=== PATIENT | male | born 1950 | race Caucasian/White ===

== ENCOUNTER → 2017-07-25 20:12 | Outpatient (CLI) | payer OTHER, MEDICARE, SELFPAY | PROVIDERS: PCP Specialist; Visit Provider Nurse Practitioner Family | DX: G47.33 Obstructive sleep apnea (adult) (pediatric) (principal); R06.83 Snoring; R51 Headache; G47.50 Parasomnia, unspecified; G47.30 Sleep apnea, unspecified | CPT/HCPCS: 95810 ==

== ENCOUNTER → 2017-07-26 08:50 | Outpatient (CLI) | payer MEDICARE, OTHER, SELFPAY ==
--- NOTE | 2017-07-26 08:56 | FL_ITS ---
FL upper GI w air HISTORY: ITS.REASON: NAUSEA,ABD PAIN ORDERING PHYSICIAN: Reginaldo Godinez MD PATIENT AGE: 66 years COMPARISON: None FINDINGS: There is dysmotility of the esophagus with prominent tertiary contractions. There is a small sliding hiatal hernia. There was some spasm of the distal esophagus at the GE junction. Stomach and duodenum have an unremarkable appearance. No ulcer or mass is evident. Proximal small bowel is unremarkable. Fluoroscopy time: 1 minute and 52 seconds. IMPRESSION: 1. Esophageal dysmotility with tertiary contractions and spasm of the distal esophagus with a small sliding hiatal hernia. 2. Otherwise negative upper GI
== END ==
PROVIDERS: Family Provider Nurse Practitioner; PCP Specialist; Visit Provider Family Medicine
DX: R11.0 Nausea (principal); R10.9 Unspecified abdominal pain
CPT/HCPCS: 74247

== ENCOUNTER → 2019-02-23 11:05 | Outpatient (CLI) | payer MEDICARE, OTHER, SELFPAY ==
--- NOTE | 2019-02-23 11:19 | XR_ITS ---
PROCEDURE: XR FOOT WT BEARING LT 3V CLINICAL INDICATION: achilles tendonitis COMPARISON: FTR3 FOOT-RT-3 VIEWS from 11/02/2013 FINDINGS: No fracture or dislocation. No lytic or blastic change. There is normal mineralization. The joint spaces are well-preserved. No significant degenerative/arthritic changes. No erosive changes evident. Other findings:There is a 5 millimeter plantar calcaneal spur and a prominent area of exostosis at the posterior calcaneus at the Achilles tendon attachment site. IMPRESSION: No acute process. Degenerative posterior and plantar calcaneal spurs. Posterior calcifications also to suggest Achilles calcific tendinitis. Dictated by: Rj Dave 02/23/2019 12:10 Electronically signed by Rj Dave in [place] 02/23/2019 12:10
--- NOTE | 2019-02-23 11:19 | XR_ITS ---
PROCEDURE: XR ANKLE WT BEARING LT MIN 3V CLINICAL INDICATION: achilles tendonitis COMPARISON: No exams were available for comparison FINDINGS: Bone density, joint spaces and alignment are normal. There is no acute fracture. There are prominent plantar and posterior calcaneal spurs and calcification likely related to the Achilles tendon near the attachment to the calcaneus. There are rounded calcific density some of which have central lucencies suggesting phleboliths within the anterior subcutaneous soft tissues. IMPRESSION: No acute process. Degenerative changes involving calcaneus with changes of Achilles calcific tendinitis. Dictated by: Rj Dave 02/23/2019 12:12 Electronically signed by Rj Dave in [place] 02/23/2019 12:12
--- NOTE | 2019-02-23 11:19 | XR_ITS ---
PROCEDURE: XR FOOT WT BEARING RT 3V CLINICAL INDICATION: achilles tendonitis COMPARISON: FTR3 FOOT-RT-3 VIEWS from 11/02/2013 XR FOOT WT BEARING LT 3V from 02/23/2019 FINDINGS: No fracture or dislocation. No lytic or blastic change. There is normal mineralization. The joint spaces are well-preserved. No significant degenerative/arthritic changes. No erosive changes evident. Other findings:There is a 5 millimeter calcaneal plantar spur and posterior calcaneal spur at the Achilles tendon attachment site. IMPRESSION: No acute process. Calcaneal spurs. Dictated by: Rj Dave 02/23/2019 12:08 Electronically signed by Rj Dave in [place] 02/23/2019 12:08
== END ==
PROVIDERS: PCP Family Medicine; Visit Provider Podiatrist
DX: M79.672 Pain in left foot; M79.671 Pain in right foot; M25.572 Pain in left ankle and joints of left foot
CPT/HCPCS: 73610; 73630

== ENCOUNTER → 2019-04-28 09:40 | Outpatient (POV) | payer MEDICARE, OTHER, SELFPAY | PROVIDERS: Visit Provider Dermatology | DX: Z00.00 Encounter for general adult medical examination without abnormal findings (principal) ==

== ENCOUNTER 2020-05-19 10:52 | Emergency (ER) | payer MEDICARE, OTHER, SELFPAY ==
[2020-05-19 11:00] VITALS: BP 138/91; PULSE 76; RESP 18; TEMP 36.9; O2SAT 97; BMI 41.8
--- NOTE | 2020-05-19 11:28 | HMH.EDUTC ---
[facility] Disposition Clinical Impression: Exposure to COVID-19 virus Disposition: Home, Self-Care Condition on Discharge: Good Instructions: Preventing the Spread of Coronavirus Discharge Instructions Additional Instructions: Drink plenty of fluids. Take tylenol for pain or fever. Return if you begin to have difficulty breathing. Follow up with your regular doctor. GO TO THE ER FOR ANY WORSENING SYMPTOMS Referrals: Chris Paniagua MD [Primary Care Provider] - Time of Disposition: 11:30 Medical Decision Making - Medical Records Medical records reviewed: No: I reviewed the patient's medical records. - Brian Inquiry Pt receiving controlled substance: No Vital Signs: 05/19/20 11:00 05/19/20 11:38 Temperature 98.4 F 98.4 F Temperature Source Oral Pulse Rate 76 Pulse Rate [Left Brachial] 76 Respiratory Rate 18 18 Blood Pressure 138/91 H Blood Pressure [Left Arm] 138/91 H Blood Pressure Mean [Left Arm] 106 Blood Pressure Source [Left Arm] Automatic Cuff Blood Pressure Position [Left Arm] Sitting 02 Sat by Pulse Oximetry 97 Oxygen Delivery Method Room Air Orders (Tests/Meds): ORDERS Category Date Time Status Covid-19 Nasal PCR Sendout P&C Routine Lab 05/19/20 11:10 Received Covid-19 Nasal PCR Sendout P&C Stat Lab 05/19/20 10:55 Ordered [facility] HPI - General Stated complaint: covid test Time Seen by Provider: 05/19/20 11:28 Mode of Arrival: Ambulatory Source of Information: Patient Limitations: No Limitations Description of Symptoms (Recalled from Triage Doc. by RN): PATIENT REQUESTING COVID TEST D/T EXPOSURE; DENIES SYMPTOMS HEENT Symptoms (Recalled from RN notes): No Resp Symptoms (Recalled from RN notes): No Skin Symptoms (Recalled from RN notes): No MS Symptoms (Recalled from RN notes): No Functional Status (Recalled from RN notes): WNL - History of Present Illness Provider Complaint: He states that he was exposed to covid about 4 days ago. Since yesterday he has had a scratchy throat and he has felt bad. He denies any chest congestion, chest pain and shortness of breath. - Related Data Home Medications Medication Instructions Recorded Confirmed aspirin 81 mg tablet,delayed PO 07/08/17 04/14/19 release levothyroxine 150 mcg tablet PO 90 Days #90 07/08/17 04/14/19 lisinopril 20 PO 30 Days #60 07/08/17 04/14/19 mg-hydrochlorothiazide 25 mg tablet omeprazole 20 mg capsule,delayed 20 mg PO ONCE 07/08/17 04/14/19 release Previous Rx's Medication Instructions Recorded diclofenac sodium 1 % topical gel 4 g TOPICAL QID PRN #100 g 02/10/19 Allergies Allergy/AdvReac Type Severity Reaction Status Date / Time No Known Allergies Allergy Verified 04/14/19 14:48 - Worker's Comp Is this a Worker's Comp case?: No [facility] History - Hepatitis A Screen Drug use history?: No High risk sexual behaviors?: No History of sexually transmitted infection?: No Currently employed?: No Childcare worker?: No Do you have indoor plumbing?: Yes Do you have electricity?: Yes Attestation statement:: This patient has been screened for Hepatitis A risk factors. I have reviewed the patient's past medical history: Yes Medical History: Reports:: Gastroesophageal Reflux Disease(GERD), Hypertension Other Medical History: Reports: Hypothyroidism, Thyroid Disease Other Surgeries: Yes: Appendectomy Amputation: No Fractures: No Comment: Arthroscopy- B/L knee, back - Social History Smoking Status: Never smoker Alcohol Intake: never Alcohol Intake Frequency:: holidays/special occasions only Substance Use Type: denies use Occupational Status: other Housing: house Household Members: spouse Family Hx:: Diabetes, Tuberculosis, Cancer ROS Obtained: Yes All systems reviewed & no additional complaints - Constitutional Constitutional: Reports system reviewed and no additional complaints, except as docu - Eyes Eyes: Reports system reviewed and no additional complaints,
[2020-05-19 11:38] VITALS: BP 138/91; PULSE 76; RESP 18; TEMP 36.9; O2SAT 97
[2020-05-20 08:11] LABS: Covid-19 Nasal PCR Sendout P&C POSITIVE
--- NOTE | 2020-05-20 11:58 | PC.NURSE ---
Pt called and advised of positive covid results.
== END 2020-05-19 11:40 | disposition home or self-care (01) ==
PROVIDERS: Emergency Provider Nurse Practitioner Family; PCP Family Medicine
DX: U07.1 COVID-19 (principal); I10 Essential (primary) hypertension; K21.9 Gastro-esophageal reflux disease without esophagitis; Z79.899 Other long term (current) drug therapy
CPT/HCPCS: G0463; 99201; U0004

== ENCOUNTER 2020-05-26 09:49 | Emergency (ER) | payer MEDICARE, OTHER, SELFPAY ==
[2020-05-26] VITALS (15 sets, daily range): BP systolic 114–164; BP diastolic 47–73; PULSE 69–94; RESP 14–167; TEMP 37.1–37.5; O2SAT 69–97; BMI 42.3
--- NOTE | 2020-05-26 10:03 | XR_ITS ---
PROCEDURE: XR CHEST PORTABLE Referring Doctor: Abel Key Patient Age:69Y CLINICAL HISTORY: Soa dyspnea exposure to covid d COMPARISON: DX,RF U[place] FL upper GI w air from 07/26/2017 CR XR ANKLE WT BEARING LT MIN 3V from 02/23/2019 FINDINGS: AP portable CXR single view. I believe upright No prior studies No prominent findings. No focal consolidation or definitive pneumonia. Subtle increased density at the lateral left base most likely is due to overlying breast tissue. Borderline cardiomegaly. Upper normal pulmonary vascularity. Central/perihilar markings upper normal particularly at the right infrahilar region. Most likely baseline for this patient. Amanda and mediastinal structures unremarkable. No pleural effusion but no pneumothorax. Chest wall unremarkable IMPRESSION: No focal pneumonia or consolidation. Nothing definitely on this single view AP portable chest. (Subtle accentuation of density left lung base most likely due to overlapping breast tissue) Dictated by: Hari Saba MD 05/26/2020 12:04 Hari Saba MD in [place] 05/26/2020 12:04
--- NOTE | 2020-05-26 10:09 | ECG_ITS ---
APPROVED REPORT Exam: Resting ECG HR:78 bpm ECG Measurements Heart Rate 78 AXES VT 178 P 24 QRSd 98 QRS -74 QT 402 T 49 QTc 458 Conclusion Normal sinus rhythm Pulmonary disease pattern Left anterior fascicular block Abnormal ECG Electronically signed by : Chris Watson, 05/27/2020 08:19:48
--- NOTE | 2020-05-26 10:22 | HMH.EDSOB ---
ED Disposition Clinical Impression: Hypokalemia Disposition: Home, Self-Care Condition on Discharge: Fair Instructions: DI for Hypokalemia Referrals: Chris Paniagua MD [Primary Care Provider] - - Critical Care Critical Care Time: No Attestation: On , the high probability of a clinically significant, sudden or life threatening deterioration of the following system(s) required my full and direct attention, intervention and personal management. The time I documented below is in addition to time spent performing reported procedures but includes the following listed in this critical care notation. Medical Decision Making - Medical Records Medical records reviewed: Yes: I reviewed the patient's medical records. MR Comment: male here with a complaint that he tested positive for Covid 7 days ago was advised that if he felt short of breath or any other symptoms he should come to the emergency room for evaluation; he noticed that his oxygen saturation had dropped down to about 88% and came here for evaluation; States his oxygen sensor at home showed his a reading of 88. Feels that when he is ambulating that he gets more soa. And is 92 to 93% here in the ER his labs have been reviewed and it shows normal findings WBC is 5; lactate is 0.19 electrolytes are essentially normal except for low potassium; chest x-ray shows no acute findings; he did have potassium of 2.9 and we have given him potassium for the same; he is also being given a Bam infusion as he tested positive for the coronavirus and he meets criteria for receiving Bam infusion - Brian Inquiry Pt receiving controlled substance: No Vital Signs: 05/26/20 09:50 05/26/20 10:22 05/26/20 10:43 Temperature 99.5 F Temperature Source Oral Pulse Rate [Left Radial] 83 83 79 Respiratory Rate 19 20 20 Blood Pressure [Right Arm] 127/64 117/64 121/54 L Blood Pressure Mean [Right Arm] 85 81 76 Blood Pressure Source [Right Arm] Automatic Cuff Automatic Cuff Automatic Cuff Blood Pressure Position [Right Arm] Sitting Sitting Sitting 02 Sat by Pulse Oximetry 92 L 92 L 94 L Oxygen Delivery Method Room Air Oxygen Flow Rate (LPM) 05/26/20 11:07 05/26/20 11:39 05/26/20 12:00 Temperature Temperature Source Pulse Rate [Left Radial] 74 74 70 Respiratory Rate 18 20 18 Blood Pressure [Right Arm] 120/47 L 122/60 144/64 H Blood Pressure Mean [Right Arm] 71 80 90 Blood Pressure Source [Right Arm] Automatic Cuff Automatic Cuff Automatic Cuff Blood Pressure Position [Right Arm] Sitting Sitting Sitting 02 Sat by Pulse Oximetry 97 94 L 90 L Oxygen Delivery Method Nasal Cannula Nasal Cannula Oxygen Flow Rate (LPM) 2 2 - Lab Data Lab results reviewed: Yes: I reviewed the patient's lab results. Lab Results 05/26/20 10:25: WBC 5.0, RBC 4.57 L, Hgb 13.3 L, Hct 39.4 L, MCV 86.2, MCH 29.1, MCHC 33.8, RDW 13.9, Plt Count 161, MPV 8.0, Neut % (Auto) 74.4, Lymph % (Auto) 17.9, Snyder % (Auto) 6.5, Eos % (Auto) 0.8, Baso % (Auto) 0.4, Neut # (Auto) 3.7, Lymph # (Auto) 0.9, Snyder # (Auto) 0.3, Eos # (Auto) 0.0, Baso # (Auto) 0.0 05/26/20 10:25: Lactate 0.9 05/26/20 10:25: Troponin I < 0.01 05/26/20 10:25: Sodium 137, Potassium 2.9 L*, Chloride 98, Carbon Dioxide 35 H, Anion Gap 6.9, BUN 17, Creatinine 0.90, Estimated Creat Clear 63, Estimated GFR 83, Est GFR ( Amer) 101, Glucose 116 H, Calcium 8.5, Total Bilirubin 0.7, AST 60 H, ALT 44, Alkaline Phosphatase 70, Total Protein 6.5, Albumin 3.5, Globulin 3.0, Albumin/Globulin Ratio 1.2 Result diagrams: 05/26/20 10:25 05/26/20 10:25 Orders (Tests/Meds): ED MEDICATIONS Generic Name Dose Route Start Last Admin Trade Name Freq PRN Reason Stop Dose Admin Diphenhydramine HCl 25 mg 05/26/20 12:15 Diphenhydramine 50mg/Ml Vial IV 05/26/20 16:00 ONCE PRN INFUSION REACTION Hydrocortisone Sodium Succinate 100 mg 05/26/20 12:15 Hydrocortisone Sod Succinate 100mg Vial IV 05/26/20 16:00 ONCE PRN
[2020-05-26 10:39] LABS: Basophils % 0.4 % (0.1-2.0); Eosinophils % 0.8 % (0.1-12.0); Hematocrit 39.4 % (42.0-52.0); Hemoglobin 13.3 g/dL (14.1-18.0); Lymphocytes # 0.9 K/mm3 (0.7-4.5); Lymphocytes % 17.9 % (10-50); Mean Corpuscular HGB Conc 33.8 g/dL (31.8-35.4); Mean Corpuscular Hemoglobin 29.1 pg (27.0-31.2); Mean Corpuscular Volume 86.2 fl (80-94); Monocytes # 0.3 K/mm3 (0.1-1.0); Monocytes % 6.5 % (1.7-9.3); Neutrophils # 3.7 K/mm3 (1.8-7.8); Neutrophils % 74.4 % (37.0-80.0); Platelet Count 161 K/mm3 (142-424); Red Blood Count 4.57 M/mm3 (4.60-6.20); Red Cell Distribution Width 13.9 % (11.5-17.5)
[2020-05-26 10:48] LABS: Chloride 98 mmol/L (98-107); Sodium 137 mmol/L (136-145)
[2020-05-26 10:49] LABS: Potassium 2.9 mmoL/L (3.5-5.1)
[2020-05-26 10:50] LABS: Alanine Aminotransferase 44 U/L (12-78); Aspartate Amino Transferase 60 U/L (17-59); Blood Urea Nitrogen 17 mg/dl (9-20); Creatinine Clearance Estimated 63 mL/min (50-200); Estimated Glomerular Filt Rate 83 ml/min (>60); GFR (African American) 101 ML/MIN (>60); Lactic Acid 0.9 mmol/L (0.7-2.1)
[2020-05-26 10:51] LABS: Albumin Level 3.5 g/dl (3.5-5.0); Albumin/Globulin Ratio 1.2 (1.1-1.8); Alkaline Phosphatase 70 U/L (38-126); Anion Gap 6.9 mEq/L (5-15); Bilirubin,Total 0.7 mg/dl (0.2-1.3); Calcium 8.5 mg/dl (8.4-10.2); Carbon Dioxide 35 mmol/L (22.0-30.0); Glucose 116 mg/dl (74-100); Total Protein,Serum 6.5 g/dl (6.3-8.2)
[2020-05-26 11:07] LABS: Troponin I < 0.01 ng/ml (0.00-0.034)
[2020-05-26 14:02] LABS: Troponin I < 0.01 ng/ml (0.00-0.034)
--- NOTE | 2020-05-26 14:28 | PC.NURSE ---
Called care management in [facility] to getting pt oxygen to take home with him. Spoke with Joyce.
--- NOTE | 2020-05-26 14:44 | PC.NURSE ---
O2 sats obtained on room air at 88%.
--- NOTE | 2020-05-26 14:57 | SW/DCPLANNER ---
SET UP HOME 02 FOR THIS PATIENT THAT PRESENTED INTO THE ED WITH SHORTNESS OF AIR... PATIENT WAS SET UP WITH [facility] PER CHOICE.. A TANK WILL BE DELIVERED TO THE HOSPITAL PRIOR TO LEAVING..
--- NOTE | 2020-05-26 15:23 | PC.NURSE ---
Spoke with Vielka from care management, she was going to contact Ruy
== END 2020-05-26 15:51 | disposition home or self-care (01) ==
PROVIDERS: Emergency Provider Emergency Medicine; PCP Family Medicine
DX: U07.1 COVID-19 (principal); E87.6 Hypokalemia; K21.9 Gastro-esophageal reflux disease without esophagitis; I10 Essential (primary) hypertension; E03.9 Hypothyroidism, unspecified; Z79.899 Other long term (current) drug therapy
CPT/HCPCS: 36415; 71045; 80053; 83605; 84484; 85025; 87040; 93005; 96365; 96375; 99284; J2405

== ENCOUNTER → 2021-12-19 08:16 | Outpatient (POV) | payer MEDICARE, OTHER, SELFPAY | PROVIDERS: Visit Provider Dermatology | DX: Z00.00 Encounter for general adult medical examination without abnormal findings (principal) ==

== ENCOUNTER 2022-02-24 08:58 | Emergency (ER) | payer MEDICARE, OTHER, SELFPAY ==
[2022-02-24 09:00] VITALS: BP 115/71; PULSE 70; RESP 16; TEMP 36.9; O2SAT 98; BMI 42.3
[2022-02-24 09:30] VITALS: BP 115/71; PULSE 70; RESP 16; TEMP 36.9; O2SAT 98; BMI 42.3
--- NOTE | 2022-02-24 09:35 | EXP.UTC ---
Discharge Plan Disposition Patient Disposition: Home, Self-Care Condition: Good Prescriptions Prescriptions: No Action lisinopril-hydrochlorothiazide 20-25 mg tablet PO 30 Days Qty: 60 Label Comments: levothyroxine 150 mcg tablet PO 90 Days Qty: 90 Label Comments: aspirin [Adult Aspirin Regimen] 81 mg tablet,delayed release (DR/EC) PO omeprazole 20 mg capsule,delayed release(DR/EC) 20 mg PO ONCE diclofenac sodium 1 % gel 4 g TOPICAL QID PRN (Reason: pain ) Qty: 100 2RF Rx Instructions: apply to single, ankle, foot; for foot includes sole/toes/top of foot Referrals Follow up/Referrals: Reginaldo Godinez MD [Primary Care Provider] - See instructions Activity Restrictions/Add. Instructions Additional Instructions/Restrictions: continue antibiotics Be sure to complete entire prescription even if feeling better Tylenol and ibuprofen as needed for pain or fever Humidifier/vaporizer/hot steamy shower Follow-up with primary care saturday. Follow-up immediately in the ER of the [facility] for new or worsening symptoms or no noticeable improvement over the next 48-72 hours. Stop smoking Inhaler every 4-6 hours as needed. Should help open airways improved cough, wheezing, shortness of breath Clinical Impressions Clinical Impression: Bronchitis Discharge ED Provider: Misha ([facility])[place] [facility] [place] General Stated complaint: cough, hard to swallow Mode of Arrival: Ambulatory Source of Information: Patient Limitations: No Limitations Time Seen by Provider: 02/24/22 09:35 Description of Symptoms (Recalled from Triage Doc. by RN): pt c/o cough, sinus congestion x 1 week seen by pcp given steriod inj and zpak with no relief of symptoms went again thurs to pcp given amox and another steroid inj pt cont to c/o symptoms. having difficulty sleeping due to cough. with same symptoms but improving with meds History of Present Illness Provider Complaint: 71 yr old male presents c/o cough, sinus congestion x 1 week seen by pcp given steriod inj and zpak with no relief of symptoms went again thurs to pcp given amox and another steroid inj pt cont to c/o symptoms. having difficulty sleeping due to cough. with same symptoms but improving with meds Related Data Home Medications Medication Instructions Recorded Confirmed aspirin 81 mg tablet,delayed PO 07/08/17 04/14/19 release (Adult Aspirin Regimen) levothyroxine 150 mcg tablet PO 90 days ##90 07/08/17 04/14/19 lisinopril 20 PO 30 days ##60 07/08/17 04/14/19 mg-hydrochlorothiazide 25 mg tablet omeprazole 20 mg capsule,delayed 20 mg PO ONCE 07/08/17 04/14/19 release Previous Rx's Medication Instructions Recorded diclofenac sodium 1 % topical gel 4 g topical QID PRN pain #100 02/10/19 grams Allergies Allergy/AdvReac Type Severity Reaction Status Date / Time No Known Allergies Allergy Verified 04/14/19 14:48 PFSH [facility] Medical History , WORKFORCE MANAGEMENT ANALYST) Hyperlipidemia Hypertension Thyroid disease Social History , WORKFORCE MANAGEMENT ANALYST) Smoking Status: Never smoker alcohol intake: never substance use type: denies use current occupational status: other Travel in the last 8 weeks: None household members: spouse housing: house ROS Obtained: Yes All systems reviewed & no additional complaints except as documented Constitutional Constitutional: Reports system reviewed and no additional complaints, except as documented, Denies fatigue and Denies fever(s) Eyes Eyes: Reports system reviewed and no additional complaints, except as documented and Denies irritation ENT Ears, Nose, Mouth, and Throat: Reports system reviewed and no additional complaints, except as documented and Denies ear discharge Cardiovascular Cardiovascular: Reports system reviewed and no additional complaints, except as documented and Denies
--- NOTE | 2022-02-24 09:44 | XR_ITS ---
PROCEDURE INFORMATION: Exam: XR Chest Exam date and time: 02/24/2022 9:46 AM Age: 71 years old Clinical indication: Cough; Additional info: Cough, wheezing TECHNIQUE: Imaging protocol: Radiologic exam of the chest. Views: 2 views. COMPARISON: CR XR CHEST PORTABLE 05/26/2020 10:34 AM FINDINGS: Lungs: Unremarkable. No consolidation. Pleural spaces: Unremarkable. No pleural effusion. No pneumothorax. Heart/Mediastinum: Unremarkable. No cardiomegaly. Bones/joints: Unremarkable. IMPRESSION: No acute findings.
[2022-02-24 10:29] VITALS: BP 115/71; PULSE 70; RESP 16; TEMP 36.9; O2SAT 98
== END 2022-02-24 10:33 | disposition home or self-care (01) ==
LOC: ER 09:09 → UTC 09:10
PROVIDERS: Emergency Provider Nurse Practitioner Family; PCP Family Medicine
DX: J40 Bronchitis, not specified as acute or chronic (principal)
CPT/HCPCS: 71046; 99212; G0463

== ENCOUNTER 2023-04-21 00:30 | Emergency (ER) | payer MEDICARE, OTHER, SELFPAY ==
[2023-04-21 00:41] VITALS: BP 194/83; PULSE 76; RESP 14; TEMP 36.6; O2SAT 99; BMI 43.8
--- NOTE | 2023-04-21 00:48 | ECG_ITS ---
APPROVED REPORT Exam: Resting ECG HR:72 bpm ECG Measurements Heart Rate 72 AXES IA 193 P 29 QRSd 105 QRS -40 QT 403 T 70 QTc 428 Conclusion SINUS RHYTHM LEFT AXIS DEVIATION [QRS AXIS < -30] VOLTAGE CRITERIA FOR LVH [MEETS CRITERIA IN ONE OF: R(aVL), S(V1), R(V5), R(V5/V6)+S(V1)] NONSPECIFIC T-WAVE ABNORMALITY ABNORMAL ECG UNCONFIRMED REPORT Electronically signed by : Chris Watson MD 04/22/2023 08:24:52
--- NOTE | 2023-04-21 00:52 | CT_ITS ---
PROCEDURE INFORMATION: Exam: CT Head Without Contrast Exam date and time: 04/21/2023 1:05 AM Age: 72 years old Clinical indication: Pain; Headache; Additional info: New headache, generalized TECHNIQUE: Imaging protocol: Computed tomography of the head without contrast. Radiation optimization: All CT scans at this facility use at least one of these dose optimization techniques: automated exposure control; mA and/or kV adjustment per patient size (includes targeted exams where dose is matched to clinical indication); or iterative reconstruction. REPORTING DATA: Count of CT and Cardiac NM exams in prior 12 months: This patient has received 0 known CTs and 0 known cardiac nuclear medicine studies in the 12 months prior to the current study. COMPARISON: No relevant prior studies available. FINDINGS: Brain: There is mild enlargement of the cortical sulci compatible with compatible with involutional changes . No evidence of mass effect or midline shift. Patchy areas of hypodensity without mass-effect are noted in the periventricular white matter . The de la rosa/white matter interfaces are preserved. There are no extra-axial fluid collections.The basal cisterns are patent. Cerebral ventricles: No hydrocephalus. Paranasal sinuses: Well aerated. No fluid levels. Mastoid air cells: Visualized mastoid air cells are well aerated. Bones/joints: Unremarkable. No acute fracture. Soft tissues: Unremarkable. IMPRESSION: 1. No evidence of intracranial hemorrhage, mass effect, midline shift or hydrocephalus. 2. Involutional changes. 3. Patchy areas of hypodensity without mass-effect are noted in the periventricular white matter . Findings are non-specific but compatible with chronic microvascular ischemic disease.
[2023-04-21 00:57] LABS: Chloride 100 mmol/L (98-107)
[2023-04-21 00:58] LABS: Potassium 3.4 mmoL/L (3.5-5.1); Sodium 139 mmol/L (136-145)
[2023-04-21 01:00] VITALS: BP 213/81; PULSE 76; RESP 12; O2SAT 96
[2023-04-21 01:00] LABS: Blood Urea Nitrogen 19 mg/dl (9-20); Creatinine Clearance Estimated 61 mL/min (50-200); Estimated Glomerular Filt Rate 73 ml/min (>60); GFR (African American) 88 ML/MIN (>60)
[2023-04-21 01:01] LABS: Alanine Aminotransferase 33 U/L (12-78); Albumin Level 4.6 g/dl (3.5-5.0); Albumin/Globulin Ratio 1.7 (1.1-1.8); Alkaline Phosphatase 69 U/L (38-126); Anion Gap 7.4 mEq/L (5-15); Aspartate Amino Transferase 47 U/L (17-59); Bilirubin,Total 0.8 mg/dl (0.2-1.3); Calcium 9.1 mg/dl (8.4-10.2); Carbon Dioxide 35 mmol/L (22.0-30.0); Globulin 2.7 g/dL (1.3-3.2); Glucose 156 mg/dl (74-100); Total Protein,Serum 7.3 g/dl (6.3-8.2)
[2023-04-21 01:10] LABS: Basophils % 0.3 % (0.1-2.0); Eosinophils % 0.3 % (0.1-12.0); Hematocrit 42.1 % (42.0-52.0); Hemoglobin 13.9 g/dL (14.1-18.0); Lymphocytes # 1.2 K/mm3 (0.7-4.5); Lymphocytes % 15.8 % (10-50); Mean Corpuscular HGB Conc 33.1 g/dL (31.8-35.4); Mean Corpuscular Hemoglobin 28.6 pg (27.0-31.2); Mean Corpuscular Volume 86.5 fl (80-94); Mean Platelet Volume 8.1 fl (7.4-10.4); Monocytes # 0.4 K/mm3 (0.1-1.0); Monocytes % 4.8 % (1.7-9.3); Neutrophils # 5.9 K/mm3 (1.8-7.8); Neutrophils % 78.9 % (37.0-80.0); Platelet Count 176 K/mm3 (142-424); Red Blood Count 4.86 M/mm3 (4.60-6.20); Red Cell Distribution Width 14.4 % (11.5-17.5); White Blood Count 7.5 K/mm3 (4.8-10.8)
[2023-04-21 01:13] LABS: Troponin I < 0.01 ng/ml (0.00-0.034)
[2023-04-21 01:35] VITALS: BP 173/67; PULSE 74; RESP 16; O2SAT 95
--- NOTE | 2023-04-21 01:41 | PC.NURSE ---
rounded on patient, no needs at this time, states headache is some better. patient informed we still need a urine spec. one will be obtained as soon as he feels the need to go
[2023-04-21 01:55] LABS: Microscopic, Urine URINE MICROSCOPIC (MICROSCOPIC)
[2023-04-21 01:57] LABS: Appearance,Urine CLEAR (Clear); Bilirubin,Urine Negative (Negative); Blood, Urine TRACE-I (Negative); Color,Urine YELLOW (Yellow); Glucose,Urine (UA) Negative (Negative); Ketones,Urine Negative (Negative); Leukocyte Esterase,Urine Negative (Negative); Nitrate,Urine Negative (Negative); Protein,Urine Negative (Negative); Specific Gravity, Urine 1.015 (1.005-1.030)
--- NOTE | 2023-04-21 02:01 | HMH.EDGENADL ---
Discharge Plan Disposition Patient Disposition: Home, Self-Care Prescriptions Prescriptions: No Action lisinopril-hydrochlorothiazide 20-25 mg tablet 20 - 25 tab PO DAILY 30 Days Qty: 60 Patient Comments: levothyroxine 150 mcg tablet 150 mcg PO DAILY 90 Days Qty: 90 Patient Comments: omeprazole 20 mg capsule,delayed release(DR/EC) 20 mg PO ONCE rosuvastatin 40 mg tablet 40 mg PO DAILY azithromycin [Zithromax Z-John] 250 mg tablet See Rx Instructions PO .COMPLEX Qty: 6 0RF Rx Instructions: For 250 mg dose pack: take 500 mg today (day 1), then 250 mg for 4 days (days 2-5) PO methylprednisolone 4 mg tablets,dose pack See Rx Instructions PO PER PKG DIR Qty: 21 0RF Rx Instructions: PO PER PKG DIR benzonatate 100 mg capsule 100 mg PO BID PRN (Reason: cough) Qty: 14 0RF albuterol sulfate 90 mcg/actuation HFA aerosol inhaler 1 inh inhalation QID Qty: 6.7 2RF Referrals Follow up/Referrals: Reginaldo Godinez MD [Primary Care Provider] - See instructions Activity Restrictions/Add. Instructions Additional Instructions/Restrictions: Recommend discontinuing the medications prescribed at the urgent care. Please follow-up with your primary care provider for reassessment of your blood pressure medications. Please return the emergency department if you develop any new or worsening symptoms or become concerned for your health. Clinical Impressions Clinical Impression: Asymptomatic hypertension Headache Qualifiers: Headache type: unspecified Headache chronicity pattern: acute headache Intractability: not intractable Qualified Code(s): R51.9 - Headache, unspecified Discharge ED Provider: Gigi Kovacs General Adult HPI General Chief complaint: Recheck/Abnormal Lab/Rx Stated complaint: High Blood Pressure Time Seen by Provider: 04/21/23 00:48 Mode of Arrival: Ambulatory Source of Information: Patient and Spouse Limitations: No Limitations Description of Symptoms (Recalled from ER Triage Doc. by RN): Patient states that he was sick and got put on steriods this week. Tonight his blood pressure got up to 205/87 and he had a headache so he took an extra blood pressure bill. History of Present Illness HPI narrative: 72-year-old male, history of hypertension, hypothyroidism presents for hypertension and headache. He is on lisinopril HCTZ at home for blood pressure and has been taking it as prescribed. He had a recent upper respiratory infection and was prescribed a Z-John and steroids by an urgent care. He has been taking these. He reports his headache is frontal, dull. He had no recent trauma. He is on no blood thinners. He reports onset was slow in nature, he reports no history of headaches. He denies any vision changes or neurologic symptoms. Related Data Home Medications Medication Instructions Recorded Confirmed levothyroxine 150 mcg tablet 150 mcg PO DAILY 90 days ##90 07/08/17 04/21/23 lisinopril 20 20 - 25 tab PO DAILY 30 days ##60 07/08/17 04/21/23 mg-hydrochlorothiazide 25 mg tablet omeprazole 20 mg capsule,delayed 20 mg PO ONCE 07/08/17 04/21/23 release rosuvastatin 40 mg tablet 40 mg PO DAILY 04/19/23 04/21/23 Previous Rx's Medication Instructions Recorded albuterol sulfate 90 mcg/actuation 1 inh inhalation QID #6.7 grams 04/19/23 aerosol inhaler azithromycin 250 mg tablet See Rx Instructions PO .COMPLEX #6 04/19/23 (Zithromax Z-John) tabs benzonatate 100 mg capsule 100 mg PO BID PRN cough #14 caps 04/19/23 methylprednisolone 4 mg tablets in See Rx Instructions PO PER PKG DIR 04/19/23 a dose pack #21 tabs Allergies Allergy/AdvReac Type Severity Reaction Status Date / Time No Known Allergies Allergy Verified 04/19/23 14:11 [facility] Disclaimer: The information contained in this section may have been updated after the patient was seen, as this information can be updated by other users. Medical History (Reviewed
[2023-04-21 02:13] LABS: Bacteria,Urine Trace /lpf; Squamous Epithelial Cell,Urine Occasional #/hpf (0-5); WBC,Urine Occasional #/hpf (0-3)
[2023-04-21 02:23] VITALS: BP 175/67; PULSE 68; RESP 16; TEMP 36.6; O2SAT 96
== END 2023-04-21 02:24 | disposition home or self-care (01) ==
PROVIDERS: Emergency Provider Emergency Medicine; PCP Family Medicine
DX: R51.9 Headache, unspecified (principal); I10 Essential (primary) hypertension; E03.9 Hypothyroidism, unspecified; E78.5 Hyperlipidemia, unspecified
CPT/HCPCS: 70450; 80053; 81001; 84484; 85025; 93005; 96374; 99285

== ENCOUNTER 2023-07-23 18:24 | Outpatient (CLI) | payer MEDICARE, OTHER, SELFPAY ==
[2023-07-23 19:27] LABS: Anion Gap 8.9 mEq/L (5-15); Blood Urea Nitrogen 13 mg/dl (9-20); Carbon Dioxide 32 mmol/L (22.0-30.0); Chloride 105 mmol/L (98-107); Estimated Glomerular Filt Rate 82 ml/min (>60); GFR (African American) 100 ML/MIN (>60); Glucose 121 mg/dl (74-100); Potassium 3.9 mmoL/L (3.5-5.1); Sodium 142 mmol/L (136-145)
[2023-07-23 19:39] LABS: NT Pro Brain Natriuretic Pep. 375 pg/mL (0-125)
== END 2023-07-23 23:59 ==
LOC: LAB.DROPOF 18:25
PROVIDERS: PCP Internal Medicine; Visit Provider Internal Medicine
DX: I50.9 Heart failure, unspecified (principal); E87.6 Hypokalemia
CPT/HCPCS: 80048; 83880

== ENCOUNTER 2023-07-23 22:02 | Emergency (ER) | payer MEDICARE, OTHER, SELFPAY ==
[2023-07-23] VITALS (7 sets, daily range): BP systolic 160–201; BP diastolic 83–98; PULSE 67–74; RESP 13–17; TEMP 37; O2SAT 95–98; BMI 44.1
--- NOTE | 2023-07-23 22:33 | HMH.EDGENADL ---
Discharge Plan Disposition Patient Disposition: Home, Self-Care Condition: Good Prescriptions Prescriptions: New lisinopril 40 mg tablet 40 mg PO DAILY Qty: 30 0RF No Action levothyroxine 150 mcg tablet 150 mcg PO DAILY 90 Days Qty: 90 Patient Comments: omeprazole 20 mg capsule,delayed release(DR/EC) 20 mg PO ONCE cholecalciferol (vitamin D3) 50 mcg (2,000 unit) capsule 50 mcg PO DAILY lisinopril 20 mg tablet 20 mg PO DAILY Qty: 30 2RF rosuvastatin 40 mg tablet 20 mg PO DAILY furosemide [Lasix] 20 mg tablet 20 mg PO DAILY PRN (Reason: edema) Qty: 30 2RF amlodipine 5 mg tablet 5 mg PO DAILY Referrals Follow up/Referrals: Kyle Everett DO [Primary Care Provider] - See instructions Activity Restrictions/Add. Instructions Additional Instructions/Restrictions: You were evaluated in the emergency department today. I recommend increasing your lisinopril to 40 mg daily as opposed to 20 mg. I have sent in a refill for this, but you may take 2 of the existing pills that you already have at home. Otherwise, continue following up with your primary care provider for reassessment of your blood pressure. Continue taking it twice a day as instructed by your primary care provider. Let him further instruct you with regards to management of your blood pressure in the future. Return to the emergency department for any new or worsening symptoms. Clinical Impressions Clinical Impression: Localized swelling of both lower legs, Asymptomatic hypertension Instructions Patient Instructions: DI for High Blood Pressure, DI for Dependent Edema Discharge ED Provider: Radha Romano General Adult HPI General Chief complaint: Recheck/Abnormal Lab/Rx Stated complaint: HBP Time Seen by Provider: 07/23/23 22:08 Mode of Arrival: Ambulatory Source of Information: Patient and Spouse Limitations: No Limitations Description of Symptoms (Recalled from ER Triage Doc. by RN): Patient states that Dr Everett took him off his HTCZ and his BP has been runnung high. TOnight Pt states that his BP was 213/94 and he had chills. History of Present Illness HPI narrative: This patient is a 72-year-old male with a history of obesity, hypertension, hypothyroidism, hyperlipidemia, and GERD presenting to the emergency department for evaluation with concern for high blood pressure at home. He states that he has been taking his blood pressure morning and night for the last 3 weeks to provide his primary care provider, Dr. Everett, with a log so that way they can adjust his medications. He states that it initially was well-controlled on lisinopril/HCTZ, however he was having progressively worsening lower extremity swelling as well as low potassium. Given this, Dr. Everett took him off of lisinopril/HCTZ and prescribed him lisinopril 20 mg and Lasix 20 mg orally to take daily. He states that despite taking these, his blood pressure has been higher than usual today. He states that it typically runs in the 160s to 170s, however tonight it was greater than 200 systolic. He notes that it was 213/94 at home, and he had chills. He notes that he occasionally gets a headache with high blood pressure as well, but right now he is feeling okay. He denies any chest pain, shortness of breath, or other concerns. He does note chronic leg swelling. Of note, he sees a marketing proposal coordinator in [place] who prescribes his amlodipine to take as needed for high blood pressure. He states that he took a dose tonight given his blood pressure was very high, but he does not take it regularly. On medical record review, his primary care provider obtain labs today including a BMP and a BNP. BNP is mildly elevated, however BMP shows no significant concerns with a normal potassium and normal creatinine. Related Data Home Medications Medication Instructions Recorded Confirmed levothyroxine 150 mcg tablet 150 mcg PO DAILY 90 days ##90 07/08/17 07/23/23 omeprazole 20 mg capsule,delayed 20 mg PO ONCE 07/08/17 07/23/23 release cholecalciferol (vitamin D3) 50 50 mcg PO DAILY 07/02/23 07/23/23 mcg (2,000 unit) capsule rosuvastatin 40 mg tablet 20 mg PO DAILY 07/02/23 07/23/23 amlodipine 5 mg tablet 5 mg PO DAILY 07/23/23 07/23/23 Previous Rx's Medication Instructions Recorded lisinopril 20 mg tablet 20 mg PO DAILY #30 tabs 07/02/23 furosemide 20 mg tablet (Lasix) 20 mg PO DAILY PRN edema #30 tabs 07/23/23 lisinopril 40 mg tablet 40 mg PO DAILY #30 tabs 07/23/23 Allergies Allergy/AdvReac Type Severity Reaction Status Date / Time No Known Allergies Allergy Verified 07/23/23 14:30 [facility] Disclaimer: The information contained in this section may have been updated after the patient was seen, as this information can be updated by other users. Medical History Hyperlipidemia Hypertension Thyroid disease Social History Smoking Status: Never smoker alcohol intake: never substance use type: denies use current occupational status: other Travel in the last 8 weeks: None household members: spouse housing: house ROS Obtained: Yes All systems reviewed & no additional complaints except as documented Physical Exam General General appearance: alert, in no apparent distress and obese Head Head exam: atraumatic and normocephalic Eye Eye exam: Present normal appearance, PERRL and EOMI ENT ENT exam: Present normal exam, normal oropharynx, mucous membranes moist and normal external ear exam Neck Neck exam: Present normal inspection, full ROM and trachea midline; Absent tenderness Chest Chest inspection: Present normal inspection and symmetric chest wall rise; Absent tenderness Respiratory Respiratory exam: Present normal lung sounds bilaterally; Absent respiratory distress, wheezes, stridor or accessory muscle use Cardiovascular Cardiovascular exam: Present regular rate and normal rhythm Abdominal Exam Abdominal exam: Present soft; Absent distention, tenderness or guarding Extremities Exam Extremities exam: Present full ROM, normal capillary refill and edema (2+ symmetric bilateral lower extremity edema); Absent tenderness Back Exam Back exam: Present normal inspection and full ROM; Absent tenderness Neurological Exam Neurological exam: Present alert, oriented X3, CN II-XII intact and normal gait; Absent motor sensory deficit Psychiatric Psychiatric exam: Present normal affect and normal mood Skin Skin exam: Present warm and dry Medical Decision Making Medical Records Medical records reviewed: Yes I reviewed the patient's medical records. Brian Inquiry Pt receiving controlled substance: No Vital Signs: 07/23/23 22:03 07/23/23 22:19 07/23/23 22:18 Temperature 98.6 F Temperature Source Oral Pulse Rate 69 Pulse Rate [Radial] 74 Respiratory Rate 17 13 Blood Pressure 193/96 H Blood Pressure [Right Arm] 201/98 H 193/96 H Blood Pressure Mean 128 Blood Pressure Mean [Right Arm] 132 128 Blood Pressure Source Blood Pressure Source [Right Arm] Automatic Cuff Automatic Cuff Blood Pressure Position Blood Pressure Position [Right Arm] Sitting Supine 02 Sat by Pulse Oximetry 96 98 Oxygen Delivery Method Room Air Room Air 07/23/23 22:31 07/23/23 22:59 07/23/23 23:21 Temperature 98.6 F Temperature Source Oral Pulse Rate 70 69 67 Pulse Rate [Radial] Respiratory Rate 14 14 14 Blood Pressure 174/94 H 160/84 H 174/83 H Blood Pressure [Right Arm] Blood Pressure Mean 120 109 Blood Pressure Mean [Right Arm] Blood Pressure Source Automatic Cuff Blood Pressure Source [Right Arm] Blood Pressure Position Sitting Blood Pressure Position [Right Arm] 02 Sat by Pulse Oximetry 95 98 Oxygen Delivery Method Room Air Room Air Room Air Lab Data Lab results reviewed: Yes I reviewed the patient's lab results. Orders (Tests/Meds): ED MEDICATIONS Discontinued Medications Generic Name Dose Route Start Last Admin Trade Name Freq PRN Reason Stop Dose Admin Furosemide 20 mg 07/23/23 22:28 07/23/23 22:41 Furosemide 20mg Tablet PO 07/23/23 22:29 20 mg ONCE ONE Administration Lisinopril 20 mg 07/23/23 22:30 07/23/23 22:42 Lisinopril 20mg Tablet PO 07/23/23 22:31 20 mg ONCE ONE Administration ECG Data Tracing #1: I reviewed this ECG and interpreted as documented below: Normal sinus rhythm with a ventricular rate of 68 bpm. Left anterior fascicular block. No acute ST changes concerning for ischemia. ECG initial impression date: 07/23/23 ECG initial impression time: 22:51 Medical Decision Narrative: In summary, this patient is a 72-year-old male presenting to the Emergency Department for evaluation of high blood pressure reading at home. Differential diagnoses considered include but are not limited to hypertensive urgency, hypertensive emergency, asymptomatic hypertension. Ruling out the most morbid conditions drove assessment. On exam, the patient is in no acute distress. He denies any significant concerns or symptoms at this time. His blood pressure is elevated in the 190s systolic while at rest in bed. After he was left alone for a bit, his blood pressure decreased to 174/94.I did not obtain labs, as I can see his labs that he had obtained earlier today including a BMP and a BNP, which did not demonstrate any acute significant concerns. Workup included EKG. EKG is reassuring. Given that the patient had reassuring labs and has hypertension without evidence of endorgan dysfunction at this time, I feel that he likely just needs adjustment of his medications. He states that his primary care provider was supposed to call him in the morning to see if he needed to increase his dose anyway. Given this, he was given an additional 20 mg of both the Lasix and lisinopril. On subsequent reassessments, the patient is resting comfortably with significant improvement in his blood pressure to the 170s from the upper 210s. The 170s is typically where he lives. Given this, I do not want to drop him acutely from this at this time. I feel this is better managed by his primary care provider, who he already has close follow-up with. I did advise that since his primary care provider was planning to increase his medications, I would recommend increase of his lisinopril to 40 mg. I will leave Lasix titration up to his primary care provider with close monitoring of his potassium and kidney function. Patient expressed understanding agreement. Patient was deemed to be appropriate for discharge. He was given instructions for close follow-up, strict return precautions, and he was discharged in stable condition after all questions were answered. Critical Care Critical Care Time Critical Care Time: No
[2023-07-23] MEDS: FUROSEMIDE 20MG TABLET 20 MG PO (22:41)
[2023-07-23] MEDS: LISINOPRIL 20MG TABLET 20 MG PO (22:42)
--- NOTE | 2023-07-23 22:47 | ECG_ITS ---
APPROVED REPORT Exam: Resting ECG HR:68 bpm ECG Measurements Heart Rate 68 AXES IA 200 P 26 QRSd 103 QRS -47 QT 419 T 48 QTc 436 Conclusion SINUS RHYTHM S1-S2-S3 PATTERN, CONSISTENT WITH PULMONARY DISEASE, RVH, OR NORMAL VARIANT PATTERN CONSISTENT WITH PULMONARY DISEASE LEFT ANTERIOR FASCICULAR BLOCK [QRS AXIS <= -45, QR IN I, RS IN II] MODERATE VOLTAGE CRITERIA FOR LVH, CONSIDER NORMAL VARIANT [MEETS CRITERIA IN ONE OF: R(aVL), S(V1), R(V5), R(V5/V6)+S(V1)] ABNORMAL ECG UNCONFIRMED REPORT Electronically signed by : Chris Watson MD 07/24/2023 10:01:48
== END 2023-07-23 23:23 | disposition home or self-care (01) ==
PROVIDERS: Emergency Provider Emergency Medicine; PCP Internal Medicine
DX: R22.41 Localized swelling, mass and lump, right lower limb (principal); R22.42 Localized swelling, mass and lump, left lower limb; I10 Essential (primary) hypertension; E78.5 Hyperlipidemia, unspecified; E03.9 Hypothyroidism, unspecified; K21.9 Gastro-esophageal reflux disease without esophagitis; I44.4 Left anterior fascicular block
CPT/HCPCS: 80048; 83880; 93005; 99284

== ENCOUNTER 2023-08-13 21:34 | Outpatient (CLI) | payer MEDICARE, OTHER, SELFPAY ==
[2023-08-13 19:34] LABS: Chloride 100 mmol/L (98-107); Potassium 3.5 mmoL/L (3.5-5.1); Sodium 139 mmol/L (136-145)
[2023-08-13 19:37] LABS: Anion Gap 6.5 mEq/L (5-15); Blood Urea Nitrogen 16 mg/dl (9-20); Calcium 9.3 mg/dl (8.4-10.2); Carbon Dioxide 36 mmol/L (22.0-30.0); Estimated Glomerular Filt Rate 73 ml/min (>60); GFR (African American) 88 ML/MIN (>60); Glucose 95 mg/dl (74-100)
== END 2023-08-13 23:59 ==
PROVIDERS: PCP Internal Medicine; Visit Provider Internal Medicine
DX: E87.6 Hypokalemia (principal)
CPT/HCPCS: 80048